=== PATIENT | male | born 1950 | race African-American/Black ===

== ENCOUNTER 2016-05-12 11:43 | Emergency (ER) | payer OTHER, MEDICARE ==
[2016-05-12] MEDS ORDERED: CEFAZOLIN 1 GM/D5W RTU 50 ML IV ONE (11:54)
[2016-05-12] MEDS ORDERED: DIPH/PERTUSS(ACELL)/TETANUS VAC/PF 0.5 ML SYR (>=10YO) IM ONE (11:54)
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
[2016-05-12 12:05] LABS: ABSOLUTE BASOPHILS # (AUTO) 0.1 10^3/uL (0.0-0.2); ABSOLUTE EOSINOPHILS # (AUTO) 0.1 10^3/uL (0.0-0.6); ABSOLUTE LYMPHOCYTES (AUTO) 2.1 10^3/uL (0.5-4.7); ABSOLUTE MONOCYTES (AUTO) 0.4 10^3/uL (0.1-1.4); ABSOLUTE NEUT (AUTO) 1.9 10^3/uL (1.7-8.2); BASOPHILS % (AUTO) 1.1 % (0-2); EOSINOPHILS % (AUTO) 2.5 % (0-6); HEMATOCRIT 40.8 % (37.9-51.0); HEMOGLOBIN 13.7 g/dL (13.5-17.0); HGB HCT DIFFERENCE 0.3; LYMPHOCYTES % (AUTO) 47.3 % (13-45); MEAN CORPUSCULAR HEMOGLOBIN 29.7 pg (27.0-33.4); MEAN CORPUSCULAR HGB CONC 33.6 g/dL (32.0-36.0); MEAN CORPUSCULAR VOLUME 89 fl (80-97); MONOCYTES % (AUTO) 8.1 % (3-13); RED CELL DISTRIBUTION WIDTH 13.5 % (11.5-14.0); WHITE BLOOD COUNT 4.6 10^3/uL (4.0-10.5)
[2016-05-12 12:12] LABS: ALANINE AMINOTRANSFERASE 33 U/L (21-72); ALBUMIN 3.7 g/dL (3.5-5.0); ALKALINE PHOSPHATASE 55 U/L (38-126); ASPARTATE AMINO TRANSFERASE 36 U/L (17-59); BILIRUBIN,TOTAL 0.5 mg/dL (0.2-1.3); BLOOD UREA NITROGEN 13 mg/dL (7-20); CARBON DIOXIDE 14 mmol/L (22-30); CHLORIDE 104 mmol/L (98-107); CREATININE RESULT 1.39 mg/dL (0.52-1.25); GLUCOSE 129 mg/dL (75-110); POTASSIUM 4.2 mmol/L (3.6-5.0); SODIUM 139.2 mmol/L (137-145); TOTAL PROTEIN 7.9 g/dL (6.3-8.2)
[2016-05-12 12:15] LABS: ANION GAP 21 (5-19)
[2016-05-12] MEDS ORDERED: TETANUS/DIPHTHERIA TOX-ADULT 0.5 ML SYR (>=7YO) IM ONE (12:20)
[2016-05-12 12:27] VITALS: BP 85/54
== END 2016-05-12 12:32 | disposition short-term general hospital (02) ==
LOC: ER 11:43
DX: S09.90XA Unspecified injury of head, initial encounter (principal); R41.82 Altered mental status, unspecified; V87.7XXA Person injured in collision between other specified motor vehicles (traffic), initial encounter
CPT/HCPCS: 99291; 90471; 96365; 36415; 85025; 80053; 70450; 71260; 72125; 74177; 90714; J0690

== ENCOUNTER → 2016-06-14 | Outpatient (CLI) | payer MEDICARE | LOC: OD 10:55 | PROVIDERS: ATTEND Family Medicine | DX: R56.9 Unspecified convulsions (principal); Z79.899 Other long term (current) drug therapy; Z12.5 Encounter for screening for malignant neoplasm of prostate | CPT/HCPCS: 36415; 80185; 83036; 84153 ==

== ENCOUNTER → 2016-09-15 | Outpatient (CLI) | payer MEDICARE | LOC: OD 08:18 | PROVIDERS: ATTEND Family Medicine | DX: N52.9 Male erectile dysfunction, unspecified (principal) | CPT/HCPCS: 36415; 84403 ==

== ENCOUNTER 2016-11-15 07:59 | Day surgery (SDC) | payer MEDICARE, OTHER ==
[~2016-11-15 07:59] MED LIST: KETOROLAC TROMETHAMINE 0.45% 4 DROP/0.4 ML DROPERETTE OS PRN; MIDAZOLAM 2 MG/2 ML INJ ONE
[2016-11-15] MEDS: CYCLOPENTOLATE 0.2%/PHENYLEPHRINE 1% OPH SOLN 2 ML OS PRN ×3 (08:40→09:00)
[2016-11-15] MEDS: TROPICAMIDE 1% OPH SOLN 3 ML OS PRN ×3 (08:40→09:00)
[2016-11-15] MEDS: BESIFLOXACIN HCL 0.6% OPH SUSP 5 ML BOTTLE OS PRN ×4 (08:41→10:15)
[2016-11-15] MEDS: LIDOCAINE 3.5% OPH GEL/PF 1 ML/TUBE OS PRN ×3 (08:41→09:56)
[2016-11-15] MEDS: BUPIVACAINE HCL 0.75% INJ/PF (7.5 MG/1 ML) 10 ML SDV OS PRN ×2 (09:55)
[2016-11-15] MEDS: LIDOCAINE 4% INJ/PF (40 MG/ML) 5 ML AMPUL OS PRN ×2 (09:55)
[2016-11-15] MEDS: LIDOCAINE 1% INJ-PF (10 MG/ML) 30 ML SDV ONE ×2 (10:01)
[2016-11-15] MEDS: CHONDR SU A NA/HYALUR INTRAOC KIT (SURGICARE) ONE ×2 (10:01)
[2016-11-15] MEDS: PHENYLEPHRINE/KETOROLAC 1%-0.3% 4 ML VIAL ONE ×2 (10:01)
--- NOTE | 2016-11-15 10:45 | [facility] OPERATIVE REPORT E ---
[facility] Operative Report NAME: ALIZE MONTES AGE: 66Y DATE OF SURGERY: 11/15/2016 ROOM: PREOPERATIVE DIAGNOSIS: Cataract, left eye. POSTOPERATIVE DIAGNOSIS: Cataract, left eye. PROCEDURE PERFORMED: Phacoemulsification with posterior chamber intraocular lens, left eye. SURGEON: Kamryn Hopkins MD ANESTHESIA: Topical with MAC plus intraocular lidocaine. PROCEDURE: The patient was brought to the operating room and placed on the operative table. Following tetracaine drops, topical anesthesia was administered. This consisted of instrument wipe pledgets soaked in a solution of 4% Xylocaine mixed with 0.75% Marcaine in a 1:2 ratio. A 2 x 1 cm pledget was placed in the superior fornix. A 1 x 1 cm pledget was placed in the inferior fornix. The eye was patched shut for 5 minutes. The patch was removed. The eye was sterilely prepped and draped in the usual manner. Lid speculum was placed in the eye. The pledgets were removed. 4-0 black silk sutures were placed around the superior and the inferior rectus muscles to be used as traction. A conjunctival peritomy was made at the 10 o'clock position. Hemostasis was obtained with bipolar cautery. A posterior limbal groove was created using a crescent knife and dissected anteriorly towards the cornea. A sharp point blade was used to create a paracentesis site at the 2 o'clock position. A 2.4 mm keratome was used to enter the anterior chamber through the groove. Viscoelastic was injected into the anterior chamber. An anterior capsulotomy was performed using Utrata forceps in a capsulorrhexis fashion. Hydrodissection and hydrodelineation were performed. Phacoemulsification was performed in [id number] technique. Total phaco time 1 minute 39 seconds. Following this, the I/A unit was used to remove residual cortex. Viscoelastic was injected into the capsular bag. Intraocular lens model SN60WF, 19.5 diopters, serial number [id number] was placed in the capsular bag. The I/A unit was used to remove residual viscoelastic. The wound was seen to be watertight under high and low pressure, and no sutures were placed. The intraocular lens was well centered. The pressure was adjusted in the eye to normal pressure. The 4-0 black silk sutures and lid speculum were removed. The eye was shielded after Besivance drops were placed. The patient tolerated the procedure well and was sent to the recovery room in good condition. DICTATING PHYSICIAN: KAMRYN HOPKINS M.D. [id number] PHY#: [id number] ID: [id number] JOB#: [id number] ACCT: [id number] cc:KAMRYN HOPKINS M.D. >
--- NOTE | 2016-11-15 10:47 | [facility] DISCHARGE SUMMARY E ---
[facility] Discharge Summary NAME: ALIZE MONTES AGE: 66Y ADMITTED: 11/15/2016 DISCHARGED: 11/15/2016 PREOPERATIVE DIAGNOSIS: Cataract, left eye. POSTOPERATIVE DIAGNOSIS: Cataract, left eye. HOSPITAL COURSE: The patient is a 66-year-old gentleman who underwent uneventful cataract extraction with intraocular lens implant, left eye, on 11/15/2016. He will be discharged to home. He was instructed to resume preoperative medications, take Tylenol as needed for discomfort, to keep his eye shielded, to use Besivance, Durezol, and Ilevro at 3 p.m. and 8 p.m., and to followup in my office in 1 day. DICTATING PHYSICIAN: BRANDY HOPKINS M.D. [id number] PHY#: [id number] ID: [id number] JOB#: [id number] ACCT: [id number] cc:BRANDY HOPKINS M.D. >
== END 2016-11-15 10:53 | disposition home or self-care (01) ==
LOC: SC 07:59
PROVIDERS: ATTEND Ophthalmology
PROC: 08RK3JZ Replacement of Left Lens with Synthetic Substitute, Percutaneous Approach (ICD-10-PCS; principal; 2016-11-15 09:00)
DX: H25.812 Combined forms of age-related cataract, left eye (principal); H57.03 Miosis; H04.123 Dry eye syndrome of bilateral lacrimal glands; Z96.1 Presence of intraocular lens; H52.4 Presbyopia; Z98.41 Cataract extraction status, right eye; I10 Essential (primary) hypertension; M19.90 Unspecified osteoarthritis, unspecified site; R32 Unspecified urinary incontinence; G40.909 Epilepsy, unspecified, not intractable, without status epilepticus; F17.210 Nicotine dependence, cigarettes, uncomplicated; Z79.1 Long term (current) use of non-steroidal anti-inflammatories (NSAID); Z79.899 Other long term (current) drug therapy
CPT/HCPCS: 66984; V2632; J2250; J3490 ×4; A9270 ×2; C9447; 142

== ENCOUNTER 2017-04-28 08:18 | Emergency (ER) | payer MEDICARE, OTHER ==
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
[2017-04-28] MEDS ORDERED: DEXAMETHASONE SOD PHOS INJ 10 MG/1 ML VIAL IM ONE (09:26)
[2017-04-28] MEDS ORDERED: FAMOTIDINE 20 MG TABLET PO ONE (09:26)
[2017-04-28] MEDS ORDERED: DIPHENHYDRAMINE HCL 50 MG/ML VIAL IM ONE (09:26)
[2017-04-28 10:07] VITALS: BP 128/63
== END 2017-04-28 10:07 | disposition home or self-care (01) ==
LOC: ER 08:18
DX: T78.40XA Allergy, unspecified, initial encounter (principal); X58.XXXA Exposure to other specified factors, initial encounter; E78.00 Pure hypercholesterolemia, unspecified; I10 Essential (primary) hypertension; F17.200 Nicotine dependence, unspecified, uncomplicated
CPT/HCPCS: 99283; 96372; A9270; J1200; J1100

== ENCOUNTER 2017-05-01 19:16 | Inpatient (IN) | payer MEDICARE, OTHER ==
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
[2017-05-01 20:01] LABS: ABSOLUTE LYMPHOCYTES (AUTO) 1.6 10^3/uL (0.5-4.7); ABSOLUTE MONOCYTES (AUTO) 0.5 10^3/uL (0.1-1.4); ABSOLUTE NEUT (AUTO) 2.3 10^3/uL (1.7-8.2); BASOPHILS % (AUTO) 0.4 % (0-2); EOSINOPHILS % (AUTO) 0.9 % (0-6); HEMATOCRIT 37.7 % (37.9-51.0); HEMOGLOBIN 12.9 g/dL (13.5-17.0); LYMPHOCYTES % (AUTO) 36.1 % (13-45); MEAN CORPUSCULAR HEMOGLOBIN 28.4 pg (27.0-33.4); MEAN CORPUSCULAR HGB CONC 34.2 g/dL (32.0-36.0); MEAN CORPUSCULAR VOLUME 83 fl (80-97); MONOCYTES % (AUTO) 11.4 % (3-13); PLATELET COUNT 106 10^3/uL (150-450); RED BLOOD COUNT 4.53 10^6/uL (4.35-5.55); RED CELL DISTRIBUTION WIDTH 13.9 % (11.5-14.0); SEGMENTED NEUTROPHILS % (AUTO) 51.2 % (42-78); TOTAL CELLS COUNTED % (AUTO) 100 %; WHITE BLOOD COUNT 4.5 10^3/uL (4.0-10.5)
--- NOTE | 2017-05-01 20:13 | RADIOLOGY REPORT (SQ) ---
EXAM DESCRIPTION: CHEST PA/LAT COMPLETED DATE/TIME: 05/01/2017 7:59 pm REASON FOR STUDY: cp COMPARISON: CT CHEST 05/12/2016, TWO-VIEW CHEST 12/06/2008 EXAM PARAMETERS: NUMBER OF VIEWS: two views TECHNIQUE: Digital Frontal and Lateral radiographic views of the chest acquired. RADIATION DOSE: NA LIMITATIONS: none FINDINGS: LUNGS AND PLEURA: No opacities, masses or pneumothorax. No pleural effusion. MEDIASTINUM AND HILAR STRUCTURES: No masses or contour abnormalities. HEART AND VASCULAR STRUCTURES: Heart normal size. No evidence for failure. BONES: Stable T8 less than 25% compression deformity HARDWARE: None in the chest. OTHER: No other significant finding. IMPRESSION: NO SIGNIFICANT RADIOGRAPHIC FINDING IN THE CHEST. TECHNICAL DOCUMENTATION: JOB ID: [id number] [employer]- All Rights Reserved
[2017-05-01 20:21] LABS: ALANINE AMINOTRANSFERASE 22 U/L (21-72); ALKALINE PHOSPHATASE 93 U/L (38-126); ANION GAP 9 (5-19); ASPARTATE AMINO TRANSFERASE 20 U/L (17-59); BILIRUBIN,DIRECT 0.4 mg/dL (0.0-0.4); BILIRUBIN,TOTAL 0.6 mg/dL (0.2-1.3); BLOOD UREA NITROGEN 13 mg/dL (7-20); CALCIUM 9.4 mg/dL (8.4-10.2); CARBON DIOXIDE 26 mmol/L (22-30); CHLORIDE 105 mmol/L (98-107); CREATINE KINASE 70 U/L (55-170); GLUCOSE 98 mg/dL (75-110); POTASSIUM 3.3 mmol/L (3.6-5.0); SODIUM 139.8 mmol/L (137-145); TOTAL PROTEIN 7.5 g/dL (6.3-8.2)
[2017-05-01 20:33] LABS: CREATINE KINASE MB 0.28 ng/mL (<4.55); TROPONIN I 0.013 ng/mL
--- NOTE | 2017-05-01 21:49 | RADIOLOGY REPORT (SQ) ---
EXAM DESCRIPTION: CTA CHEST COMPLETED DATE/TIME: 05/01/2017 9:30 pm REASON FOR STUDY: hx dvt, left lower cxhest pain with breathing COMPARISON: Two-view chest 05/01/2017 CT chest with IV contrast 05/12/2016 TECHNIQUE: CT scan of the chest performed using helical scanning technique with dynamic intravenous contrast injection. Images reviewed with lung, soft tissue and bone windows. Reconstructed coronal and sagittal MPR images reviewed. Additional 3 dimensional post-processing performed to develop Maximal Intensity Projection images (AR P). All images stored on PACS. All CT scanners at this facility use dose modulation, iterative reconstruction, and/or weight based d osing when appropriate to reduce radiation dose to as low as reasonably achievable (ALARA). [facility]: Dose Right [facility]: CareDose [facility]: Dose Right [facility]: Teradose 4D [facility]: [employer] CONTRAST TYPE AND DOSE: contrast/concentration: Isovue 370.00 mg/ml; Total Contrast Delivered: 75.0 ml; Total Saline Delivered: 67.7 ml Contrast bolus adequate for pulmonary arteries and aorta. RENAL FUNCTION: Creatinine 0.83 RADIATION DOSE: CT Rad equipment meets quality standard of care and radiation dose reduction techniq ues were employed. CTDIvol: 14.6 - 16.5 mGy. DLP: 591 mGy-cm. . LIMITATIONS: None. FINDINGS: LUNGS AND PLEURA: Minimal atelectasis in the dependent portion of the left lower lobe. No fluffy alveolar infiltrates worrisome for pulmonary edema or pneumonia. No pleural effusions or pneumothorax AORTA AND GREAT VESSELS: No aneurysm. Contrast bolus not optimized for the aorta. HEART: No pericardial effusion. No significant coronary artery calcifications. PULMONARY ARTERIES: Heavy burden of clot to these distal right main pulmonary artery, anterior segmen t right upper lobe, segmental right lower lobe and left lower lobe pulmonary arteries. HILAR AND MEDIASTINAL STRUCTURES: No identified masses or abnormal nodes. HARDWARE: None in the chest. UPPER ABDOMEN: No significant findings. Limited exam. THYROID AND OTHER SOFT TISSUES: No masses. No adenopathy. BONES: Chronic T8 25 to 50% compression deformity 3D MIPS: Confirm above findings. OTHER: No other significant finding. IMPRESSION: Bilateral lower lobe and anterior segment right upper lobe pulmonary emboli COMMENT: Pertinent findings on the imaging study reported as a CRITICAL RESULT to DR ALLEN at21:3 3 on 05/01/2017. Category of Critical Result: Bilateral pulmonary emboli Quality ID # [id number]: Final reports with documentation of one or more dose reduction techniques (e.g., Au tomated exposure control, adjustment of the mA and/or kV according to patient size, use of iterative reconstruction technique) TECHNICAL DOCUMENTATION: JOB ID: [id number] [employer]- All Rights Reserved
[2017-05-01] MEDS ORDERED: HEPARIN SOD (PORCINE) 1,000 UNIT/ML 10 ML VIAL IV ONE ×2 (21:55→22:35)
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
[2017-05-01 22:09] LABS: INTERNATIONAL RATION (INR) 0.98; PROTHROMBIN TIME 13.7 SEC (11.4-15.4)
[2017-05-01 22:10] LABS: PARTIAL THROMBOPLASTIN TIME 39.8 SEC (23.5-35.8)
[2017-05-01] MEDS ORDERED: HEPARIN SODIUM,PORCINE/D5W 25,000 UNIT/250 ML RTUINJ IV ONE (22:18)
[2017-05-01] MEDS: HEPARIN SODIUM,PORCINE/D5W 25,000 UNIT/250 ML RTUINJ IV PRN (22:20)
[2017-05-01] MEDS ORDERED: MAGNESIUM HYDROXIDE SUSP 30 ML UDCUP PO PRN (22:35)
[2017-05-01] MEDS ORDERED: PROMETHAZINE HCL INJ 25 MG/1 ML VIAL IV PRN (22:35)
[2017-05-01] MEDS ORDERED: ZOLPIDEM TARTRATE 5 MG TABLET PO PRN (22:35)
[2017-05-01] MEDS ORDERED: ACETAMINOPHEN 325 MG TABLET PO PRN (22:35)
[2017-05-01] MEDS ORDERED: MAG HYDROX/AL HYDROX/SIMETH SUSP 30 ML UDCUP PO PRN (22:35)
[2017-05-01] MEDS ORDERED: AMLODIPINE BESYLATE 10 MG TABLET PO ONE (23:00)
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
[2017-05-01] MEDS ORDERED: PHENYTOIN SODIUM EXTENDED 100 MG CAPSULE PO ONE (23:45)
[2017-05-02] MEDS: DEXTROSE 5%-NORMAL SALINE 1,000 ML IV PRN (00:41)
[2017-05-02] MEDS ORDERED: HEPARIN SOD (PORCINE) 1,000 UNIT/ML 10 ML VIAL IV PRN (00:55)
[2017-05-02 01:00] LABS: APPEARANCE,URINE CLEAR; BILIRUBIN,URINE NEGATIVE (NEGATIVE); COLOR,URINE YELLOW; GLUCOSE, URINE NEGATIVE (NEGATIVE); KETONES,URINE NEGATIVE (NEGATIVE); LEUKOCYTE ESTERASE,URINE NEGATIVE (NEGATIVE); NITRITE,URINE NEGATIVE (NEGATIVE); PROTEIN,URINE NEGATIVE (NEGATIVE)
[2017-05-02 04:56] LABS: ABSOLUTE EOSINOPHILS # (AUTO) 0.1 10^3/uL (0.0-0.6); ABSOLUTE LYMPHOCYTES (AUTO) 1.8 10^3/uL (0.5-4.7); ABSOLUTE MONOCYTES (AUTO) 0.7 10^3/uL (0.1-1.4); BASOPHILS % (AUTO) 0.7 % (0-2); EOSINOPHILS % (AUTO) 1.4 % (0-6); HEMATOCRIT 35.4 % (37.9-51.0); HEMOGLOBIN 12.2 g/dL (13.5-17.0); LYMPHOCYTES % (AUTO) 39.9 % (13-45); MEAN CORPUSCULAR HEMOGLOBIN 28.7 pg (27.0-33.4); MEAN CORPUSCULAR HGB CONC 34.4 g/dL (32.0-36.0); MEAN CORPUSCULAR VOLUME 83 fl (80-97); MONOCYTES % (AUTO) 14.3 % (3-13); PLATELET COUNT 101 10^3/uL (150-450); RED BLOOD COUNT 4.25 10^6/uL (4.35-5.55); RED CELL DISTRIBUTION WIDTH 13.6 % (11.5-14.0); SEGMENTED NEUTROPHILS % (AUTO) 43.7 % (42-78); TOTAL CELLS COUNTED % (AUTO) 100 %; WHITE BLOOD COUNT 4.6 10^3/uL (4.0-10.5)
[2017-05-02 06:30] LABS: INTERNATIONAL RATION (INR) 1.08; PROTHROMBIN TIME 14.8 SEC (11.4-15.4)
--- NOTE | 2017-05-02 07:49 | EKG REPORT ---
SEVERITY:- ABNORMAL ECG - SINUS RHYTHM FIRST DEGREE AV BLOCK PROBABLE LEFT VENTRICULAR HYPERTROPHY CONSIDER ANTERIOR INFARCT : Confirmed by: Car Norris MD 02-May-2017 07:48:28
[2017-05-02] MEDS ORDERED: (PENDING PHARMACY ID) (Lisinopril [Prinivil] 20 MG) PO SCH ×2 (10:00→12:00)
[2017-05-02] MEDS ORDERED: AMLODIPINE BESYLATE 10 MG TABLET PO SCH (10:00)
[2017-05-02] MEDS ORDERED: LISINOPRIL 10 MG TABLET ONE (11:34)
[2017-05-02] MEDS: DOCUSATE SODIUM 100 MG CAPSULE PO SCH (11:38)
[2017-05-02] MEDS: FAMOTIDINE 20 MG TABLET PO SCH ×2 (11:38→21:15)
[2017-05-02] MEDS: AMLODIPINE BESYLATE 10 MG TABLET PO SCH (11:39)
[2017-05-02] MEDS: TAMSULOSIN HCL 0.4 MG CAP.SR.24H PO SCH (11:41)
[2017-05-02] MEDS: ASPIRIN 81 MG TABLET, ENT COATED PO SCH (11:41)
[2017-05-02 11:42] LABS: ALANINE AMINOTRANSFERASE 28 U/L (21-72); ALBUMIN 3.4 g/dL (3.5-5.0); ALKALINE PHOSPHATASE 77 U/L (38-126); ANION GAP 7 (5-19); ASPARTATE AMINO TRANSFERASE 16 U/L (17-59); BILIRUBIN,DIRECT 0.3 mg/dL (0.0-0.4); BILIRUBIN,TOTAL 0.5 mg/dL (0.2-1.3); BLOOD UREA NITROGEN 12 mg/dL (7-20); CALCIUM 9.1 mg/dL (8.4-10.2); CARBON DIOXIDE 24 mmol/L (22-30); CHLORIDE 110 mmol/L (98-107); GLUCOSE 107 mg/dL (75-110); POTASSIUM 3.5 mmol/L (3.6-5.0); SODIUM 140.6 mmol/L (137-145); TOTAL PROTEIN 6.6 g/dL (6.3-8.2)
[2017-05-02] MEDS: PHENYTOIN SODIUM EXTENDED 100 MG CAPSULE PO SCH (11:42)
[2017-05-02] MEDS: LISINOPRIL 10 MG TABLET PO SCH (11:43)
--- NOTE | 2017-05-02 14:35 | RADIOLOGY REPORT (SQ) ---
EXAM DESCRIPTION: VENOUS BILATERAL LOWER COMPLETED DATE/TIME: 05/02/2017 2:04 pm REASON FOR STUDY: pulmonary emboli COMPARISON: None. TECHNIQUE: Dynamic and static chow scale and color images acquired of both lower extremity venous sy stems. Selected spectral images acquired with additional compression and augmentation maneuvers. Imag es stored on PACS. LIMITATIONS: None. FINDINGS: RIGHT LEG COMMON FEMORAL AND FEMORAL: Normal phasicity, compression and augmentation. No visualized echogenic m aterial on chow scale. No defects on color images. POPLITEAL: Occlusive acute appearing intraluminal thrombus is identified CALF VESSELS: Normal compression and augmentation. No visualized echogenic material on chow scale. No defects on color image. GSV AND SSV: Normal compression. No visualized echogenic material on chow scale. No defects on color images. ANY DEEP VENOUS INSUFFICIENCY: Not evaluated. ANY EVIDENCE OF POPLITEAL CYST: No. OTHER: No other significant finding. LEFT LEG COMMON FEMORAL AND FEMORAL: Normal phasicity, compression and augmentation. No visualized echogenic m aterial on chow scale. No defects on color images. POPLITEAL: Normal compression and augmentation. No visualized echogenic material on chow scale. No de fects on color images. CALF VESSELS: Normal compression and augmentation. No visualized echogenic material on chow scale. No defects on color images. GSV AND SSV: Normal compression. No visualized echogenic material on chow scale. No defects on color images. ANY DEEP VENOUS INSUFFICIENCY: Not evaluated. ANY EVIDENCE POPLITEAL CYST: No. OTHER: No other significant finding. IMPRESSION: Findings consistent with deep venous thrombosis involving the popliteal vein on the righ t. No other evidence for deep or superficial venous thrombosis in either lower extremity TECHNICAL DOCUMENTATION: JOB ID: [id number] [employer]- All Rights Reserved
--- NOTE | 2017-05-02 14:39 | PDOC PROGRESS REPORT ---
Subjective Progress Note for:: 05/02/17 Subjective:: Patient seen on rounds. He is presently resting comfortably in bed. He is not requiring any oxygen. He denies any chest pain or dyspnea at rest. He is not tachycardic or hypoxemic. He denies any nausea, vomiting or abdominal pain. He denies any fever or chills. He denies any significant arthralgias or myalgias. Remaining review of systems are all negative. His family is at the bedside. Reason For Visit: BILATERAL PE WITH HEAVY CLOT BURDEN Physical Exam Vital Signs: Temp Pulse Resp BP Pulse Ox 100.4 F 79 22 H 157/57 H 99 05/02/17 06:20 05/01/17 19:32 05/02/17 05:59 05/02/17 06:00 05/02/17 06:01 Intake & Output 05/01/17 05/02/17 05/03/17 06:59 06:59 06:59 Output Total 450 Balance -450 General appearance: PRESENT: no acute distress, well-developed, well-nourished Head exam: PRESENT: atraumatic, normocephalic Ear exam: PRESENT: normal external ear exam Mouth exam: PRESENT: moist, tongue midline Neck exam: ABSENT: carotid bruit, JVD, lymphadenopathy, thyromegaly Respiratory exam: PRESENT: clear to auscultation lio. ABSENT: rales, rhonchi, wheezes Cardiovascular exam: PRESENT: irregular rhythm, +S1, +S2 Pulses: PRESENT: normal dorsalis pedis pul Vascular exam: PRESENT: normal capillary refill GI/Abdominal exam: PRESENT: normal bowel sounds, soft. ABSENT: distended, guarding, mass, organolmegaly, rebound, tenderness Rectal exam: PRESENT: deferred Extremities exam: PRESENT: full ROM. ABSENT: calf tenderness, clubbing, pedal edema Neurological exam: PRESENT: alert, awake, oriented to person, oriented to place , oriented to time, oriented to situation, CN II-XII grossly intact. ABSENT: motor sensory deficit Psychiatric exam: PRESENT: appropriate affect, normal mood. ABSENT: homicidal ideation, suicidal ideation Skin exam: PRESENT: dry, intact, warm. ABSENT: cyanosis, rash Results Laboratory Results: 05/02/17 04:45 05/02/17 11:09 05/02/17 05/02/17 05/02/17 00:45 04:45 11:09 WBC 4.6 RBC 4.25 L Hgb 12.2 L Hct 35.4 L MCV 83 MCH 28.7 MCHC 34.4 RDW 13.6 Plt Count 101 L Seg Neutrophils % 43.7 Lymphocytes % 39.9 Monocytes % 14.3 H Eosinophils % 1.4 Basophils % 0.7 Absolute Neutrophils 2.0 Absolute Lymphocytes 1.8 Absolute Monocytes 0.7 Absolute Eosinophils 0.1 Absolute Basophils 0.0 Sodium 140.6 Potassium 3.5 L Chloride 110 H Carbon Dioxide 24 Anion Gap 7 BUN 12 Creatinine 0.84 Est GFR ( Amer) > 60 Est GFR (Non-Af Amer) > 60 Glucose 107 Calcium 9.1 Total Bilirubin 0.5 AST 16 L ALT 28 Alkaline Phosphatase 77 Total Protein 6.6 Albumin 3.4 L Urine Color YELLOW Urine Appearance CLEAR Urine pH 7.0 Ur Specific Orange 1.040 Urine Protein NEGATIVE Urine Glucose (UA) NEGATIVE Urine Ketones NEGATIVE Urine Blood NEGATIVE Urine Nitrite NEGATIVE Ur Leukocyte Esterase NEGATIVE Urine WBC (Auto) 1 Urine RBC (Auto) 1 Impressions: Chest X-Ray 05/01/17 19:35 IMPRESSION: NO SIGNIFICANT RADIOGRAPHIC FINDING IN THE CHEST. Chest/Abdomen CTA 05/01/17 20:41 IMPRESSION: Bilateral lower lobe and anterior segment right upper lobe pulmonary emboli Assessment & Plan - Diagnosis (1) Multiple pulmonary emboli Is this a current diagnosis for this admission?: Yes Plan: Patient is presently asymptomatic. He is not having any chest pain or shortness of breath. He is not requiring any oxygen. He has no lower extremity edema. He has had no recent travels or injuries. He has no prior history of DVT or PE in the past. He did have a fracture of his left leg approximately 9 months ago and was on DVT prophylaxis for some time at that time. He has been told he has an irregular heart rhythm at times. He has not been taking any anticoagulation. Will consult hematology for their input. Will continue IV heparin for the present time. A transthoracic echo and lower extremity ultrasounds are pending. (2) Chest pain Qualifiers: Chest pain type: pleurodynia Qualified Code(s): R07.81 - Pleurodynia Is this a current diagnosis for this admission?: Yes (3) BPH NOS w ur obs/LUTS Is this a current diagnosis for this admission?: Yes Plan: Continue Flomax (4) HTN (hypertension) Qualifiers: Hypertension type: essential hypertension Qualified Code(s): I10 - Essential (primary) hypertension Is this a current diagnosis for this admission?: Yes Plan: Continue home medications he is presently normotensive. (5) Seizure disorder Is this a current diagnosis for this admission?: Yes Plan: Continue home medications. He has not had a seizure in over a year. - Time Time Spent with patient: 25-34 minutes Total Critical Time (Minutes): 20 Anticipated discharge: Home Within: within 48 hours
[2017-05-02] MEDS ORDERED: INFLUENZA ADLT QUAD (36MOS+) 2017-18 VAC 0.5 ML SYR IM PRN (16:56)
--- NOTE | 2017-05-02 19:06 | XCELERA REPORT ---
[address] [address] Transthoracic Echocardiogram Report Name: ALIZE MONTES Age: 67 yrs Gender: Male : 1950 Patient Status: Inpatient Patient Location: [address] Study Date: 05/02/2017 09:01 AM Height: 71 in Weight: 194 lb BSA: 2.1 m2 Procedure: A complete two-dimensional transthoracic echocardiogram was performed (2D, M-mode, spectral and color flow Doppler). The study was technically adequate with some images being suboptimal in quality. Reason For Study: pe Ordering Physician: LICO YUN Performed By: Agnieszka Kelly Interpretation Summary The left ventricular ejection fraction is normal. Doppler measurements suggest pseudonormalized left ventricular relaxation, which is associated with grade II/IV or mild to moderate diastolic dysfunction There is mild concentric left ventricular hypertrophy. The left ventricle is grossly normal size. Wall motion cannot be accurately commented on, but no definite regional wall motion abnormalities noted. The right ventricle is grossly normal size. The right ventricular systolic function is normal. Borderline left atrial enlargement. The right atrium is normal in size There is no mitral valve stenosis. There is a mild amount of mitral regurgitation There is mild aortic stenosis There is a peak gradient of 20 mm of Hg. There is a moderate amount of aortic regurgitation There is a mild amount of tricuspid regurgitation There is mild to moderate pulmonary hypertension by echo Right ventricular systolic pressure is estimated to be elevated at 40- 50mmHg. There is no pericardial effusion. MMode/2D Measurements & Calculations RVDd: 3.2 cm LVIDd: 4.6 cm FS: 40.6 % Ao root diam: IVSd: 1.00 cm LVIDs: 2.7 cm EDV(Teich): 95.9 ml 3.2 cm LVPWd: 0.98 cm ESV(Teich): 27.4 ml Ao root area: EF(Teich): 71.4 % 7.8 cm2 LA dimension: 3.5 cm LVOT diam: LVLd ap4: 8.5 cm CO(MOD-sp4): 7.1 l/min 2.5 cm EDV(MOD-sp4): SV(MOD-sp4): 103.0 ml LA A2Cs: 25.7 cm2 LVOT area: 130.0 ml LVLs ap4: 6.0 cm 5.1 cm2 ESV(MOD-sp4): 27.0 ml EF(MOD-sp4): 79.2 % LA A4Cs: LA length: 5.8 cm LA Vol Index (BP): LA Volume: 78.8 ml 21.0 cm2 37.9 ml/m2 Time Measurements MM R-R int: 0.87 sec MM HR: 69.0 BPM Doppler Measurements & Calculations MV E max moreno: MV P1/2t max moreno: Ao V2 max: AI max moreno: 114.5 cm/sec 111.1 cm/sec 217.2 cm/sec 502.2 cm/sec MV A max moreno: MV P1/2t: 77.7 msec Ao max PG: AI max P.0 cm/sec MVA(P1/2t): 2.8 cm2 18.9 mmHg 100.9 mmHg MV E/A: 0.97 MV dec slope: NETO(V,D): 3.7 cm2 AI dec slope: 327.4 cm/sec2 418.7 cm/sec2 AI P1/2t: 449.3 msec LV V1 max PG: PA V2 max: PI end-d moreno: TR max moreno: 10.0 mmHg 67.6 cm/sec 108.6 cm/sec 325.8 cm/sec LV V1 max: PA max P.8 mmHg TR max P.5 cm/sec 42.5 mmHg LV dP/dt: 1818 mmHg/s Left Ventricle The left ventricle is grossly normal size. There is mild concentric left ventricular hypertrophy. The left ventricular ejection fraction is normal. Doppler measurements suggest pseudonormalized left ventricular relaxation, which is associated with grade II/IV or mild to moderate diastolic dysfunction. Wall motion cannot be accurately commented on, but no definite regional wall motion abnormalities noted. Right Ventricle The right ventricle is grossly normal size. There is normal right ventricular wall thickness. The right ventricular systolic function is normal. Atria The right atrium is normal in size. Borderline left atrial enlargement. Interarterial septum not well visualized and not well dopplered. Cannot comment on ASD/PFO presence. Mitral Valve There is mild mitral annular calcification. There is mild mitral leaflet calcification. There is no mitral valve stenosis. There is a mild amount of mitral regurgitation. Aortic Valve The aortic valve is mildly calcified. There is mild aortic stenosis. There is a peak gradient of 20 mm of Hg. There is a moderate amount of aortic regurgitation. Tricuspid Valve The tricuspid valve is not well visualized, but is grossly normal. There is no tricuspid stenosis. There is a mild amount of tricuspid regurgitation. There is mild to moderate pulmonary hypertension by echo. Right ventricular systolic pressure is estimated to be elevated at 40-50mmHg. Pulmonic Valve The pulmonic valve is not well visualized. Great Vessels The aortic root is not well visualized. The inferior vena cava appeared normal and decreased > 50% with respiration (RAP 5-10 mmHg). Effusions There is no pericardial effusion. : LICO YUN > Padmini Javier
[2017-05-02] MEDS: HEPARIN SODIUM,PORCINE/D5W 25,000 UNIT/250 ML RTUINJ IV PRN (21:14)
[2017-05-02] MEDS: ATORVASTATIN CALCIUM 10 MG TABLET PO SCH (21:15)
[2017-05-02] MEDS ORDERED: (PENDING PHARMACY ID) (Pravastatin Sodium [Pravachol] 40 MG) PO SCH (22:00)
[2017-05-02] MEDS ORDERED: PHENYTOIN SODIUM EXTENDED 100 MG CAPSULE PO SCH (22:00)
[2017-05-03] MEDS: DEXTROSE 5%-NORMAL SALINE 1,000 ML IV PRN (06:34)
[2017-05-03 06:36] LABS: HEMATOCRIT 34.9 % (37.9-51.0); HEMOGLOBIN 11.7 g/dL (13.5-17.0); MEAN CORPUSCULAR HEMOGLOBIN 28.3 pg (27.0-33.4); MEAN CORPUSCULAR HGB CONC 33.6 g/dL (32.0-36.0); MEAN CORPUSCULAR VOLUME 84 fl (80-97); PLATELET COUNT 102 10^3/uL (150-450); RED BLOOD COUNT 4.14 10^6/uL (4.35-5.55); RED CELL DISTRIBUTION WIDTH 13.6 % (11.5-14.0); WHITE BLOOD COUNT 3.4 10^3/uL (4.0-10.5)
[2017-05-03 06:37] LABS: INTERNATIONAL RATION (INR) 1.08; PROTHROMBIN TIME 14.8 SEC (11.4-15.4)
[2017-05-03 07:28] LABS: ALANINE AMINOTRANSFERASE 31 U/L (21-72); ALBUMIN 3.1 g/dL (3.5-5.0); ALKALINE PHOSPHATASE 73 U/L (38-126); ANION GAP 6 (5-19); ASPARTATE AMINO TRANSFERASE 15 U/L (17-59); BILIRUBIN,DIRECT 0.3 mg/dL (0.0-0.4); BILIRUBIN,TOTAL 0.4 mg/dL (0.2-1.3); BLOOD UREA NITROGEN 11 mg/dL (7-20); CALCIUM 8.9 mg/dL (8.4-10.2); CARBON DIOXIDE 25 mmol/L (22-30); CHLORIDE 112 mmol/L (98-107); GLUCOSE 101 mg/dL (75-110); POTASSIUM 3.5 mmol/L (3.6-5.0); SODIUM 143.1 mmol/L (137-145); TOTAL PROTEIN 6.2 g/dL (6.3-8.2)
[2017-05-03 07:54] LABS: APPEARANCE,URINE CLEAR; BILIRUBIN,URINE NEGATIVE (NEGATIVE); COLOR,URINE YELLOW; GLUCOSE, URINE NEGATIVE (NEGATIVE); KETONES,URINE NEGATIVE (NEGATIVE); LEUKOCYTE ESTERASE,URINE NEGATIVE (NEGATIVE); NITRITE,URINE NEGATIVE (NEGATIVE); PROTEIN,URINE NEGATIVE (NEGATIVE); URINE SPECIFIC GRAVITY 1.021
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
[2017-05-03] MEDS: DOCUSATE SODIUM 100 MG CAPSULE PO SCH (09:57)
[2017-05-03] MEDS: FAMOTIDINE 20 MG TABLET PO SCH ×2 (09:57→22:54)
[2017-05-03] MEDS: AMLODIPINE BESYLATE 10 MG TABLET PO SCH (11:14)
[2017-05-03] MEDS: LISINOPRIL 10 MG TABLET PO SCH (11:14)
[2017-05-03] MEDS: TAMSULOSIN HCL 0.4 MG CAP.SR.24H PO SCH (11:15)
[2017-05-03] MEDS: ASPIRIN 81 MG TABLET, ENT COATED PO SCH (11:15)
[2017-05-03] MEDS: PHENYTOIN SODIUM EXTENDED 100 MG CAPSULE PO SCH (11:15)
--- NOTE | 2017-05-03 18:05 | PDOC PROGRESS REPORT ---
Subjective Progress Note for:: 05/03/17 Subjective:: Patient seen on rounds. He is presently resting comfortably in bed. He is not requiring any oxygen. He denies any chest pain or dyspnea at rest. He is not tachycardic or hypoxemic. He was seen by Dr Forde in hematology this am He denies any nausea, vomiting or abdominal pain. He denies any fever or chills. He denies any significant arthralgias or myalgias. Remaining review of systems are all negative. His family is at the bedside. Reason For Visit: BILATERAL PE WITH HEAVY CLOT BURDEN Physical Exam Vital Signs: Temp Pulse Resp BP Pulse Ox 99.0 F 61 18 152/60 H 100 05/03/17 16:33 05/03/17 16:33 05/03/17 16:33 05/03/17 16:33 05/03/17 16:33 Intake & Output 05/02/17 05/03/17 05/04/17 06:59 06:59 06:59 Intake Total 1372 354 Output Total 1250 Balance 122 354 Weight 79.3 kg General appearance: PRESENT: no acute distress, well-developed, well-nourished Head exam: PRESENT: atraumatic, normocephalic Eye exam: PRESENT: conjunctiva pink, EOMI, PERRLA. ABSENT: scleral icterus Ear exam: PRESENT: normal external ear exam Mouth exam: PRESENT: moist, tongue midline Neck exam: ABSENT: carotid bruit, JVD, lymphadenopathy, thyromegaly Respiratory exam: PRESENT: clear to auscultation lio. ABSENT: rales, rhonchi, wheezes Cardiovascular exam: PRESENT: RRR. ABSENT: diastolic murmur, rubs, systolic murmur Pulses: PRESENT: normal dorsalis pedis pul Vascular exam: PRESENT: normal capillary refill GI/Abdominal exam: PRESENT: normal bowel sounds, soft. ABSENT: distended, guarding, mass, organolmegaly, rebound, tenderness Rectal exam: PRESENT: deferred Extremities exam: PRESENT: full ROM. ABSENT: calf tenderness, clubbing, pedal edema Neurological exam: PRESENT: alert, awake, oriented to person, oriented to place , oriented to time, oriented to situation, CN II-XII grossly intact. ABSENT: motor sensory deficit Psychiatric exam: PRESENT: appropriate affect, normal mood. ABSENT: homicidal ideation, suicidal ideation Skin exam: PRESENT: dry, intact, warm. ABSENT: cyanosis, rash Results Laboratory Results: 05/03/17 06:01 05/03/17 06:01 05/03/17 05/03/17 05/03/17 06:01 06:01 06:30 WBC 3.4 L RBC 4.14 L Hgb 11.7 L Hct 34.9 L MCV 84 MCH 28.3 MCHC 33.6 RDW 13.6 Plt Count 102 L Sodium 143.1 Potassium 3.5 L Chloride 112 H Carbon Dioxide 25 Anion Gap 6 BUN 11 Creatinine 0.83 Est GFR ( Amer) > 60 Est GFR (Non-Af Amer) > 60 Glucose 101 Calcium 8.9 Total Bilirubin 0.4 AST 15 L ALT 31 Alkaline Phosphatase 73 Total Protein 6.2 L Albumin 3.1 L Urine Color YELLOW Urine Appearance CLEAR Urine pH 6.0 Ur Specific [place] 1.021 Urine Protein NEGATIVE Urine Glucose (UA) NEGATIVE Urine Ketones NEGATIVE Urine Blood NEGATIVE Urine Nitrite NEGATIVE Ur Leukocyte Esterase NEGATIVE Urine WBC (Auto) 1 Urine RBC (Auto) 5 Stool Occult Blood 05/03/17 12:25 WBC RBC Hgb Hct MCV MCH MCHC RDW Plt Count Sodium Potassium Chloride Carbon Dioxide Anion Gap BUN Creatinine Est GFR ( Amer) Est GFR (Non-Af Amer) Glucose Calcium Total Bilirubin AST ALT Alkaline Phosphatase Total Protein Albumin Urine Color Urine Appearance Urine pH Ur Specific [place] Urine Protein Urine Glucose (UA) Urine Ketones Urine Blood Urine Nitrite Ur Leukocyte Esterase Urine WBC (Auto) Urine RBC (Auto) Stool Occult Blood NEGATIVE Impressions: Chest X-Ray 05/01/17 19:35 IMPRESSION: NO SIGNIFICANT RADIOGRAPHIC FINDING IN THE CHEST. Chest/Abdomen CTA 05/01/17 20:41 IMPRESSION: Bilateral lower lobe and anterior segment right upper lobe pulmonary emboli Venous Doppler Study 05/02/17 00:00 IMPRESSION: Findings consistent with deep venous thrombosis involving the popliteal vein on the right. No other evidence for deep or superficial venous thrombosis in either lower extremity Assessment & Plan - Diagnosis (1) Multiple pulmonary emboli Is this a current diagnosis for this admission?: Yes Plan: Patient is presently asymptomatic. He is not having any chest pain or shortness of breath. He was found to have right leg polpiteal DVT as well. He has history of PE several years ago. He is on Dilantin which interacts with Eliquis, Xarelto etc. Will start on Coumadin today and bridge with Heparin (2) BPH NOS w ur obs/LUTS Is this a current diagnosis for this admission?: Yes Plan: Continue Flomax (3) HTN (hypertension) Qualifiers: Hypertension type: essential hypertension Qualified Code(s): I10 - Essential (primary) hypertension Is this a current diagnosis for this admission?: Yes Plan: Continue home medications he is presently normotensive. (4) Seizure disorder Is this a current diagnosis for this admission?: Yes Plan: Continue home medications. He has not had a seizure in over a year. (5) Chest pain Qualifiers: Chest pain type: pleurodynia Qualified Code(s): R07.81 - Pleurodynia Is this a current diagnosis for this admission?: Yes Plan: Resolved secondary to PE - Time Time Spent with patient: 25-34 minutes Smoking Cessation Education: 3 to 10 minutes Medications reviewed and adjusted accordingly: Yes Anticipated discharge: Home with Homehealth
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
[2017-05-03] MEDS: WARFARIN SODIUM 3 MG TABLET PO SCH (22:54)
[2017-05-03] MEDS: ATORVASTATIN CALCIUM 10 MG TABLET PO SCH (22:54)
[2017-05-04] MEDS: HEPARIN SODIUM,PORCINE/D5W 25,000 UNIT/250 ML RTUINJ IV PRN (01:12)
[2017-05-04 06:16] LABS: ABSOLUTE EOSINOPHILS # (AUTO) 0.1 10^3/uL (0.0-0.6); ABSOLUTE LYMPHOCYTES (AUTO) 1.6 10^3/uL (0.5-4.7); ABSOLUTE MONOCYTES (AUTO) 0.3 10^3/uL (0.1-1.4); ABSOLUTE NEUT (AUTO) 0.6 10^3/uL (1.7-8.2); BASOPHILS % (AUTO) 0.7 % (0-2); EOSINOPHILS % (AUTO) 4.2 % (0-6); HEMATOCRIT 35.6 % (37.9-51.0); HEMOGLOBIN 12.2 g/dL (13.5-17.0); LYMPHOCYTES % (AUTO) 59.9 % (13-45); MEAN CORPUSCULAR HEMOGLOBIN 28.7 pg (27.0-33.4); MEAN CORPUSCULAR HGB CONC 34.3 g/dL (32.0-36.0); MEAN CORPUSCULAR VOLUME 84 fl (80-97); MONOCYTES % (AUTO) 11.4 % (3-13); PLATELET COUNT 113 10^3/uL (150-450); RED BLOOD COUNT 4.25 10^6/uL (4.35-5.55); RED CELL DISTRIBUTION WIDTH 13.8 % (11.5-14.0); SEGMENTED NEUTROPHILS % (AUTO) 23.8 % (42-78); TOTAL CELLS COUNTED % (AUTO) 100 %; WHITE BLOOD COUNT 2.7 10^3/uL (4.0-10.5)
[2017-05-04 06:19] LABS: INTERNATIONAL RATION (INR) 1.01
[2017-05-04 06:21] LABS: PARTIAL THROMBOPLASTIN TIME 91.3 SEC (23.5-35.8)
[2017-05-04 06:35] LABS: ALANINE AMINOTRANSFERASE 23 U/L (21-72); ALBUMIN 3.4 g/dL (3.5-5.0); ALKALINE PHOSPHATASE 81 U/L (38-126); ANION GAP 7 (5-19); ASPARTATE AMINO TRANSFERASE 18 U/L (17-59); BILIRUBIN,DIRECT 0.3 mg/dL (0.0-0.4); BILIRUBIN,TOTAL 0.3 mg/dL (0.2-1.3); BLOOD UREA NITROGEN 10 mg/dL (7-20); CALCIUM 9.3 mg/dL (8.4-10.2); CARBON DIOXIDE 24 mmol/L (22-30); CHLORIDE 110 mmol/L (98-107); GLUCOSE 92 mg/dL (75-110); POTASSIUM 3.5 mmol/L (3.6-5.0); TOTAL PROTEIN 6.6 g/dL (6.3-8.2)
--- NOTE | 2017-05-04 07:48 | PDOC PROGRESS REPORT ---
Subjective Progress Note for:: 05/04/17 Subjective:: Patient without complaints today. His chest pain is now gone. He asks for a flu shot while he is here. Reason For Visit: BILATERAL PE WITH HEAVY CLOT BURDEN Physical Exam Vital Signs: Temp Pulse Resp BP Pulse Ox 98.9 F 56 L 18 137/64 H 100 05/04/17 03:59 05/04/17 03:59 05/04/17 03:59 05/04/17 03:59 05/04/17 03:59 Intake & Output 05/03/17 05/04/17 05/05/17 06:59 06:59 06:59 Intake Total 1372 1274 Output Total 1250 500 Balance 122 774 Weight 79.3 kg 75.7 kg General appearance: PRESENT: no acute distress Respiratory exam: PRESENT: unlabored Neurological exam: PRESENT: alert, awake Psychiatric exam: PRESENT: appropriate affect Results Laboratory Results: 05/04/17 05:22 05/04/17 05:22 05/03/17 05/03/17 05/04/17 06:30 12:25 05:22 WBC 2.7 L RBC 4.25 L Hgb 12.2 L Hct 35.6 L MCV 84 MCH 28.7 MCHC 34.3 RDW 13.8 Plt Count 113 L Seg Neutrophils % 23.8 L Lymphocytes % 59.9 H Monocytes % 11.4 Eosinophils % 4.2 Basophils % 0.7 Absolute Neutrophils 0.6 L Absolute Lymphocytes 1.6 Absolute Monocytes 0.3 Absolute Eosinophils 0.1 Absolute Basophils 0.0 Sodium Potassium Chloride Carbon Dioxide Anion Gap BUN Creatinine Est GFR ( Amer) Est GFR (Non-Af Amer) Glucose Calcium Total Bilirubin AST ALT Alkaline Phosphatase Total Protein Albumin Urine Color YELLOW Urine Appearance CLEAR Urine pH 6.0 Ur Specific Arnold 1.021 Urine Protein NEGATIVE Urine Glucose (UA) NEGATIVE Urine Ketones NEGATIVE Urine Blood NEGATIVE Urine Nitrite NEGATIVE Ur Leukocyte Esterase NEGATIVE Urine WBC (Auto) 1 Urine RBC (Auto) 5 Stool Occult Blood NEGATIVE 05/04/17 05:22 WBC RBC Hgb Hct MCV MCH MCHC RDW Plt Count Seg Neutrophils % Lymphocytes % Monocytes % Eosinophils % Basophils % Absolute Neutrophils Absolute Lymphocytes Absolute Monocytes Absolute Eosinophils Absolute Basophils Sodium 141.0 Potassium 3.5 L Chloride 110 H Carbon Dioxide 24 Anion Gap 7 BUN 10 Creatinine 0.78 Est GFR ( Amer) > 60 Est GFR (Non-Af Amer) > 60 Glucose 92 Calcium 9.3 Total Bilirubin 0.3 AST 18 ALT 23 Alkaline Phosphatase 81 Total Protein 6.6 Albumin 3.4 L Urine Color Urine Appearance Urine pH Ur Specific Arnold Urine Protein Urine Glucose (UA) Urine Ketones Urine Blood Urine Nitrite Ur Leukocyte Esterase Urine WBC (Auto) Urine RBC (Auto) Stool Occult Blood Impressions: Chest X-Ray 05/01/17 19:35 IMPRESSION: NO SIGNIFICANT RADIOGRAPHIC FINDING IN THE CHEST. Chest/Abdomen CTA 05/01/17 20:41 IMPRESSION: Bilateral lower lobe and anterior segment right upper lobe pulmonary emboli Venous Doppler Study 05/02/17 00:00 IMPRESSION: Findings consistent with deep venous thrombosis involving the popliteal vein on the right. No other evidence for deep or superficial venous thrombosis in either lower extremity Assessment & Plan - Diagnosis (1) Multiple pulmonary emboli Is this a current diagnosis for this admission?: Yes Plan: I again explained plan to patient. He states he should be able to have PT/INR drawn in my office as needed to monitor the coumadin. This was started last night. He continues IV heparin until INR is 2-3. Please make sure patient has coumadin teaching and has appointment to follow-up with me as outpatient for labs and further Rx refills. Call if needed. OK with me to discharge once INR 2-3 with outpatient INR 3 days after discharge. OK for Flu shot prior to discharge.
[2017-05-04] MEDS: FAMOTIDINE 20 MG TABLET PO SCH ×2 (10:37→21:27)
[2017-05-04] MEDS: DOCUSATE SODIUM 100 MG CAPSULE PO SCH (10:37)
[2017-05-04] MEDS: LISINOPRIL 10 MG TABLET PO SCH (12:44)
[2017-05-04] MEDS: ASPIRIN 81 MG TABLET, ENT COATED PO SCH (12:44)
[2017-05-04] MEDS: PHENYTOIN SODIUM EXTENDED 100 MG CAPSULE PO SCH (12:45)
[2017-05-04] MEDS: AMLODIPINE BESYLATE 10 MG TABLET PO SCH (12:45)
[2017-05-04] MEDS: TAMSULOSIN HCL 0.4 MG CAP.SR.24H PO SCH (12:45)
--- NOTE | 2017-05-04 16:16 | PDOC PROGRESS REPORT ---
Subjective Progress Note for:: 05/04/17 Subjective:: Patient was admitted with multiple pulmonary emboli. He had been on heparin with the plan is to switch him to Lovenox bridge as well as Coumadin. He denies any complaints. There is no hemoptysis chest pain or dizziness. Reason For Visit: BILATERAL PE WITH HEAVY CLOT BURDEN Physical Exam Vital Signs: Temp Pulse Resp BP Pulse Ox 99.0 F 51 L 16 155/61 H 99 05/04/17 12:33 05/04/17 12:33 05/04/17 12:33 05/04/17 12:33 05/04/17 12:33 Intake & Output 05/03/17 05/04/17 05/05/17 06:59 06:59 06:59 Intake Total 1372 1274 318 Output Total 1250 500 Balance 122 774 318 Weight 79.3 kg 75.7 kg General appearance: PRESENT: no acute distress, well-developed Head exam: PRESENT: atraumatic, normocephalic Eye exam: PRESENT: conjunctiva pink, EOMI, PERRLA. ABSENT: scleral icterus Ear exam: PRESENT: normal external ear exam Mouth exam: PRESENT: moist, tongue midline Neck exam: ABSENT: carotid bruit, JVD, lymphadenopathy, thyromegaly Respiratory exam: PRESENT: clear to auscultation lio. ABSENT: rales, rhonchi, wheezes Cardiovascular exam: PRESENT: RRR. ABSENT: diastolic murmur, rubs, systolic murmur Pulses: PRESENT: normal dorsalis pedis pul Vascular exam: PRESENT: normal capillary refill GI/Abdominal exam: PRESENT: normal bowel sounds, soft. ABSENT: distended, guarding, mass, organolmegaly, rebound, tenderness Rectal exam: PRESENT: deferred Extremities exam: PRESENT: full ROM. ABSENT: calf tenderness, clubbing, pedal edema Neurological exam: PRESENT: alert, awake, oriented to person, oriented to place , oriented to time, oriented to situation, CN II-XII grossly intact. ABSENT: motor sensory deficit Psychiatric exam: PRESENT: appropriate affect, normal mood. ABSENT: homicidal ideation, suicidal ideation Skin exam: PRESENT: dry, intact, warm. ABSENT: cyanosis, rash Results Laboratory Results: 05/04/17 05:22 05/04/17 05:22 05/04/17 05/04/17 05:22 05:22 WBC 2.7 L RBC 4.25 L Hgb 12.2 L Hct 35.6 L MCV 84 MCH 28.7 MCHC 34.3 RDW 13.8 Plt Count 113 L Seg Neutrophils % 23.8 L Lymphocytes % 59.9 H Monocytes % 11.4 Eosinophils % 4.2 Basophils % 0.7 Absolute Neutrophils 0.6 L Absolute Lymphocytes 1.6 Absolute Monocytes 0.3 Absolute Eosinophils 0.1 Absolute Basophils 0.0 Sodium 141.0 Potassium 3.5 L Chloride 110 H Carbon Dioxide 24 Anion Gap 7 BUN 10 Creatinine 0.78 Est GFR ( Amer) > 60 Est GFR (Non-Af Amer) > 60 Glucose 92 Calcium 9.3 Total Bilirubin 0.3 AST 18 ALT 23 Alkaline Phosphatase 81 Total Protein 6.6 Albumin 3.4 L Impressions: Chest X-Ray 05/01/17 19:35 IMPRESSION: NO SIGNIFICANT RADIOGRAPHIC FINDING IN THE CHEST. Chest/Abdomen CTA 05/01/17 20:41 IMPRESSION: Bilateral lower lobe and anterior segment right upper lobe pulmonary emboli Venous Doppler Study 05/02/17 00:00 IMPRESSION: Findings consistent with deep venous thrombosis involving the popliteal vein on the right. No other evidence for deep or superficial venous thrombosis in either lower extremity Assessment & Plan - Diagnosis (1) HTN (hypertension) Qualifiers: Hypertension type: essential hypertension Qualified Code(s): I10 - Essential (primary) hypertension Is this a current diagnosis for this admission?: Yes (2) Multiple pulmonary emboli Is this a current diagnosis for this admission?: Yes (3) Seizure disorder Is this a current diagnosis for this admission?: Yes - Time Time Spent with patient: 15-24 minutes - Inpatient Certification Medical Necessity: Other - Adjustment of anticoagulation prior to discharge - Plan Summary Plan Summary: P Assessment and plan This is a current diagnosis for this admission 1. Multiple pulmonary emboli currently on heparin although this is to be discontinued and switched to Lovenox bridge as well as Coumadin. Plan is to likely discharge in a.m. 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 2. Hypertension, benign essential. This is stable 3. Seizure disorder currently on Dilantin 4. Benign prostatic hypertrophy chronic 5. Atypical chest pain likely secondary to multiple PEs. This has resolved
[2017-05-04] MEDS: ENOXAPARIN SODIUM INJ 80 MG/0.8 ML DISP.SYRIN SUBCUT SCH (19:22)
[2017-05-04] MEDS: WARFARIN SODIUM 3 MG TABLET PO SCH (21:27)
[2017-05-04] MEDS: ATORVASTATIN CALCIUM 10 MG TABLET PO SCH (21:27)
[2017-05-05] MEDS: ENOXAPARIN SODIUM INJ 80 MG/0.8 ML DISP.SYRIN SUBCUT SCH (05:53)
[2017-05-05 06:05] LABS: HEMATOCRIT 35.7 % (37.9-51.0); HEMOGLOBIN 12.2 g/dL (13.5-17.0); MEAN CORPUSCULAR HEMOGLOBIN 28.4 pg (27.0-33.4); MEAN CORPUSCULAR HGB CONC 34.2 g/dL (32.0-36.0); MEAN CORPUSCULAR VOLUME 83 fl (80-97); PLATELET COUNT 119 10^3/uL (150-450); RED CELL DISTRIBUTION WIDTH 13.3 % (11.5-14.0); WHITE BLOOD COUNT 2.6 10^3/uL (4.0-10.5)
[2017-05-05] MEDS: DOCUSATE SODIUM 100 MG CAPSULE PO SCH (10:47)
[2017-05-05] MEDS: FAMOTIDINE 20 MG TABLET PO SCH (10:47)
[2017-05-05 11:40] VITALS: BP 156/67
[2017-05-05] MEDS: ASPIRIN 81 MG TABLET, ENT COATED PO SCH (11:44)
[2017-05-05] MEDS: LISINOPRIL 10 MG TABLET PO SCH (11:44)
[2017-05-05] MEDS: TAMSULOSIN HCL 0.4 MG CAP.SR.24H PO SCH (11:45)
[2017-05-05] MEDS: AMLODIPINE BESYLATE 10 MG TABLET PO SCH (11:45)
[2017-05-05] MEDS: PHENYTOIN SODIUM EXTENDED 100 MG CAPSULE PO SCH (11:45)
--- NOTE | 2017-05-05 13:20 | PDOC PROGRESS REPORT ---
Subjective Progress Note for:: 05/04/17 Subjective:: Patient seems to be doing better with gradual improvement. Pt is denying any chest arm or neck discomfort. Patient denying any PND, orthopnea. Patient denied any sustained palpitations, dizziness, syncope, near syncope. Patient denying any fever chills. Patient denying any other significant discomfort. Patient is maintaining sinus rhythm. Review of systems: Rest review of systems negative. Medications: Medications have been reviewed. Reason For Visit: BILATERAL PE WITH HEAVY CLOT BURDEN Physical Exam Vital Signs: Temp Pulse Resp BP Pulse Ox 98.9 F 61 18 150/62 H 100 05/04/17 20:06 05/04/17 20:06 05/04/17 20:06 05/04/17 20:06 05/04/17 20:06 Intake & Output 05/03/17 05/04/17 05/05/17 06:59 06:59 06:59 Intake Total 1372 1274 917 Output Total 1250 500 Balance 122 774 917 Weight 79.3 kg 75.7 kg Exam: GENERAL: well-nourished and in no acute distress. Alert and oriented x3 HEAD: Atraumatic, normocephalic. EYES: Pupils equal round and reactive to light, extraocular movements intact, sclera anicteric, conjunctiva are normal. ENT: TMs normal, nares patent, oropharynx clear without exudates. Moist mucous membranes. No oral ulcerations or bleeding gums noted NECK: supple without lymphadenopathy. Trachea is central. No cervical or axillary lymphadenopathy noted. Carotids are 2+, JVD WNL LUNGS: Respiration seems nonlabored, no significant accessory muscle action noted. Breath sounds clear to auscultation bilaterally and equal noted. No wheezes rales or rhonchi noted. No significant dullness noted on percussion. CHEST: Palpation of the chest wall shows no significant chest wall tenderness. No other significant abnormalities noted. HEART: [place], No PSH, 2/6 WILLIAM aortic area, 2/6 early diastolic murmur noted LSB, 1/6 biggs systolic murmur mitral area, no rubs, no gallops. ABDOMEN: Soft, no significant tenderness appreciated, normoactive bowel sounds. No guarding, no rebound. No rigidity noted . No masses appreciated. EXTREMITIES: Pedal pulses are 1-2+, no calf tenderness noted. No clubbing or cyanosis.trace pedal edema noted NEUROLOGICAL: Focused neurological exam showed no significant neurologic deficit. Normal speech, no focal weakness appreciated. PSYCH: Normal mood, normal affect. Judgment and insight within normal limits. SKIN: No significant ecchymosis, rash, ulcerations or signs of pruritus noted. MUSCULOSKELETAL EXAM: No significant joint swelling noted. Results Laboratory Results: 05/04/17 05:22 05/04/17 05:22 05/04/17 05/04/17 05:22 05:22 WBC 2.7 L RBC 4.25 L Hgb 12.2 L Hct 35.6 L MCV 84 MCH 28.7 MCHC 34.3 RDW 13.8 Plt Count 113 L Seg Neutrophils % 23.8 L Lymphocytes % 59.9 H Monocytes % 11.4 Eosinophils % 4.2 Basophils % 0.7 Absolute Neutrophils 0.6 L Absolute Lymphocytes 1.6 Absolute Monocytes 0.3 Absolute Eosinophils 0.1 Absolute Basophils 0.0 Sodium 141.0 Potassium 3.5 L Chloride 110 H Carbon Dioxide 24 Anion Gap 7 BUN 10 Creatinine 0.78 Est GFR ( Amer) > 60 Est GFR (Non-Af Amer) > 60 Glucose 92 Calcium 9.3 Total Bilirubin 0.3 AST 18 ALT 23 Alkaline Phosphatase 81 Total Protein 6.6 Albumin 3.4 L EKG Comments: Shows sinus rhythm with occasional APCs and VPCs. No sustained tacky or bradycardia arrhythmias noted. Impressions: Chest X-Ray 05/01/17 19:35 IMPRESSION: NO SIGNIFICANT RADIOGRAPHIC FINDING IN THE CHEST. Chest/Abdomen CTA 05/01/17 20:41 IMPRESSION: Bilateral lower lobe and anterior segment right upper lobe pulmonary emboli Venous Doppler Study 05/02/17 00:00 IMPRESSION: Findings consistent with deep venous thrombosis involving the popliteal vein on the right. No other evidence for deep or superficial venous thrombosis in either lower extremity Assessment & Plan - Diagnosis (1) Chest pain Qualifiers: Chest pain type: chest pain on breathing Qualified Code(s): R07.1 - Chest pain on breathing; R07.81 - Pleurodynia Is this a current diagnosis for this admission?: Yes (2) HTN (hypertension) Qualifiers: Hypertension type: essential hypertension Qualified Code(s): I10 - Essential (primary) hypertension Is this a current diagnosis for this admission?: Yes (3) Multiple pulmonary emboli Is this a current diagnosis for this admission?: Yes (4) Valvular heart disease Is this a current diagnosis for this admission?: Yes - Notes Notes: Chest pain: [place] to be related to pulmonary embolism rather than acute coronary syndrome. Patient informed that he would benefit from stress test and will be happy to follow him in the office to schedule that. Hypertension: Currently reasonably well controlled. Continue current regimen. Multiple pulmonary emboli: Continue with chronic anticoagulation. Agree with oncologist consultation. Valvular heart disease: Currently stable without any evidence of CHF. Discussed that periodic follow-up will be needed. No need for SBE prophylaxis at this point. - Time Time with patient: 15-25 minutes - CODE STATUS was discussed, patient remains full code. Surrogate decision-maker unchanged. Multiple medical problems were addressed. More than 50% of the time spent coordinating care, discussing management plans with involved caregivers. Management plans discussed with involved personnels. Medical decision making was of moderate to high complexity , patient's has multiple comorbidities. Medications reviewed and adjusted accordingly: Yes
--- NOTE | 2017-05-05 13:23 | PDOC PROGRESS REPORT ---
Subjective Progress Note for:: 05/05/17 Subjective:: Patient seems to be doing better. He is expecting discharge. Pt is denying any chest arm or neck discomfort. Patient denying any PND, orthopnea. Patient denied any sustained palpitations, dizziness, syncope, near syncope. Patient denying any fever chills. Patient denying any other significant discomfort. Patient is maintaining sinus rhythm. Occasional APCs and VPCs noted Review of systems: Rest review of systems negative. Medications: Medications have been reviewed. Reason For Visit: BILATERAL PE WITH HEAVY CLOT BURDEN Physical Exam Vital Signs: Temp Pulse Resp BP Pulse Ox 97.9 F 55 L 16 156/67 H 100 05/05/17 11:34 05/05/17 11:34 05/05/17 11:34 05/05/17 11:34 05/05/17 11:34 Intake & Output 05/04/17 05/05/17 05/06/17 06:59 06:59 06:59 Intake Total 1274 927 Output Total 500 Balance 774 927 Weight 75.7 kg 75.5 kg Exam: GENERAL: well-nourished and in no acute distress. Alert and oriented x3 HEAD: Atraumatic, normocephalic. EYES: Pupils equal round and reactive to light, extraocular movements intact, sclera anicteric, conjunctiva are normal. ENT: TMs normal, nares patent, oropharynx clear without exudates. Moist mucous membranes. No oral ulcerations or bleeding gums noted NECK: supple without lymphadenopathy. Trachea is central. No cervical or axillary lymphadenopathy noted. Carotids are 2+, JVD WNL LUNGS: Respiration seems nonlabored, no significant accessory muscle action noted. Breath sounds clear to auscultation bilaterally and equal noted. No wheezes rales or rhonchi noted. No significant dullness noted on percussion. CHEST: Palpation of the chest wall shows no significant chest wall tenderness. No other significant abnormalities noted. HEART: [place] [employer], No PSH, 2/6 ejection systolic murmur noted in the aortic area, 2 /6 early diastolic murmur noted at LSB, 1/6 biggs systolic murmur mitral area, no rubs, no gallops. ABDOMEN: Soft, no significant tenderness appreciated, normoactive bowel sounds. No guarding, no rebound. No rigidity noted . No masses appreciated. EXTREMITIES: Pedal pulses are 1-2+, no calf tenderness noted. No clubbing or cyanosis. Negative pedal edema noted NEUROLOGICAL: Focused neurological exam showed no significant neurologic deficit. Normal speech, no focal weakness appreciated. PSYCH: Normal mood, normal affect. Judgment and insight within normal limits. SKIN: No significant ecchymosis, rash, ulcerations or signs of pruritus noted. MUSCULOSKELETAL EXAM: No significant joint swelling noted. Results Laboratory Results: 05/05/17 05:38 05/04/17 05:22 05/05/17 05:38 WBC 2.6 L RBC 4.30 L Hgb 12.2 L Hct 35.7 L MCV 83 MCH 28.4 MCHC 34.2 RDW 13.3 Plt Count 119 L Impressions: Chest X-Ray 05/01/17 19:35 IMPRESSION: NO SIGNIFICANT RADIOGRAPHIC FINDING IN THE CHEST. Chest/Abdomen CTA 05/01/17 20:41 IMPRESSION: Bilateral lower lobe and anterior segment right upper lobe pulmonary emboli Venous Doppler Study 05/02/17 00:00 IMPRESSION: Findings consistent with deep venous thrombosis involving the popliteal vein on the right. No other evidence for deep or superficial venous thrombosis in either lower extremity Assessment & Plan - Diagnosis (1) Chest pain Qualifiers: Chest pain type: chest pain on breathing Qualified Code(s): R07.1 - Chest pain on breathing; R07.81 - Pleurodynia Is this a current diagnosis for this admission?: Yes (2) HTN (hypertension) Qualifiers: Hypertension type: essential hypertension Qualified Code(s): I10 - Essential (primary) hypertension Is this a current diagnosis for this admission?: Yes (3) Multiple pulmonary emboli Is this a current diagnosis for this admission?: Yes (4) Valvular heart disease Is this a current diagnosis for this admission?: Yes - Notes Notes: Patient has remained stable throughout this hospitalization as regards cardiovascular system symptoms. His blood pressure has been reasonably well- controlled. Anticoagulation is being managed by hospitalist and also by oncologist. As regards valvular heart disease, he can follow-up with me in the office. Patient is expected to be just discharged today. Will sign off. Please reconsult if needed. - Time Time with patient: 15-25 minutes - CODE STATUS was discussed, patient remains full code. Surrogate decision-maker unchanged. Multiple medical problems were addressed. More than 50% of the time spent coordinating care, discussing management plans with involved caregivers. Management plans discussed with involved personnels. Medical decision making was of moderate to high complexity , patient's has multiple comorbidities. Medications reviewed and adjusted accordingly: Yes
--- NOTE | 2017-05-07 18:11 | PDOC DISCHARGE SUMMARY ---
General - Admit/Disc Date/PCP Admission Date/Primary Care Provider: 05/01/17 22:23 RITIKA MELENDEZ MD Discharge Date: 05/05/17 - Discharge Diagnosis (1) HTN (hypertension) Is this a current diagnosis for this admission?: Yes (2) Multiple pulmonary emboli Is this a current diagnosis for this admission?: Yes (3) Seizure disorder Is this a current diagnosis for this admission?: Yes - Additional Information Resuscitation Status: Full Code Discharge Diet: Cardiac Discharge Activity: Activity As Tolerated Prescriptions: Warfarin Sodium [Coumadin 3 mg Tablet] 6 mg PO QHS #30 tablet Enoxaparin Sodium [Lovenox Inj 80 mg/0.8 ml Disp.syrin] 75 mg SUBCUT Q12A #14 disp.syrin Home Medications: Amlodipine Besylate [Norvasc 10 mg Tablet] 10 mg PO DAILY 05/02/17 Aspirin [Aspirin EC] 81 mg PO DAILY 05/02/17 Hydrochlorothiazide [Hydrodiuril 12.5 mg Capsule] 12.5 mg PO DAILY 05/02/17 Lisinopril [Prinivil] 20 mg PO DAILY 05/02/17 Phenytoin Sodium Extended [Dilantin 100 mg Capsule.er] 300 mg PO DAILY 05/02/17 Pravastatin Sodium [Pravachol] 40 mg PO QHS 05/02/17 Tamsulosin HCl [Flomax 0.4 mg Cap.sr] 0.4 mg PO DAILY 05/02/17 Enoxaparin Sodium [Lovenox Inj 80 mg/0.8 ml Disp.syrin] 75 mg SUBCUT Q12A #14 disp.syrin 05/05/17 Warfarin Sodium [Coumadin 3 mg Tablet] 6 mg PO QHS #30 tablet 05/05/17 History of Present Illness Patient complains of: Shortness of breath and difficulty breathing as well as leg swelling and was found to have DVT and multiple pulmonary emboli. History of Present Illness: ALIZE MONTES is a 67 year old male Hospital Course Hospital Course: Patient was admitted for difficulty breathing and shortness of breath who was subsequently found to have a right popliteal vein DVT as well as multiple pulmonary embolus bilaterally. He was initially started on heparin but this has been transitioned to Lovenox bridge as well as Coumadin. Patient says symptoms have resolved and is deemed stable enough for discharge home. Consultations by cardiology was done due to a finding of valvular heart disease on 2-dimensional echocardiogram. No acute intervention planned. Hematology was also consulted and he will be followed as outpatient by Dr. Forde. Patient has been able to self inject Lovenox with resolution of his presenting symptoms and hemodynamic stability he has been discharged home Physical Exam Vital Signs: Temp Pulse Resp BP Pulse Ox 97.9 F 55 L 16 143/61 H 100 05/05/17 07:49 05/05/17 07:49 05/05/17 07:49 05/05/17 07:49 05/05/17 07:49 Intake & Output 05/04/17 05/05/17 05/06/17 06:59 06:59 06:59 Intake Total 1274 927 Output Total 500 Balance 774 927 Weight 75.7 kg 75.5 kg General appearance: PRESENT: no acute distress, well-developed, well-nourished Head exam: PRESENT: atraumatic, normocephalic Eye exam: PRESENT: conjunctiva pink, EOMI, PERRLA. ABSENT: scleral icterus Ear exam: PRESENT: normal external ear exam Mouth exam: PRESENT: moist, tongue midline Neck exam: ABSENT: carotid bruit, JVD, lymphadenopathy, thyromegaly Respiratory exam: PRESENT: clear to auscultation lio. ABSENT: rales, rhonchi, wheezes Cardiovascular exam: PRESENT: RRR. ABSENT: diastolic murmur, rubs, systolic murmur Pulses: PRESENT: normal dorsalis pedis pul Vascular exam: PRESENT: normal capillary refill GI/Abdominal exam: PRESENT: normal bowel sounds, soft. ABSENT: distended, guarding, mass, organolmegaly, rebound, tenderness Rectal exam: PRESENT: deferred Extremities exam: PRESENT: full ROM. ABSENT: calf tenderness, clubbing, pedal edema Neurological exam: PRESENT: alert, awake, oriented to person, oriented to place , oriented to time, oriented to situation, CN II-XII grossly intact. ABSENT: motor sensory deficit Psychiatric exam: PRESENT: appropriate affect, normal mood. ABSENT: homicidal ideation, suicidal ideation Skin exam: PRESENT: dry, intact, warm. ABSENT: cyanosis, rash Results Laboratory Results: 05/05/17 05:38 05/04/17 05:22 05/05/17 05:38 WBC 2.6 L RBC 4.30 L Hgb 12.2 L Hct 35.7 L MCV 83 MCH 28.4 MCHC 34.2 RDW 13.3 Plt Count 119 L Impressions: Chest X-Ray 05/01/17 19:35 IMPRESSION: NO SIGNIFICANT RADIOGRAPHIC FINDING IN THE CHEST. Chest/Abdomen CTA 05/01/17 20:41 IMPRESSION: Bilateral lower lobe and anterior segment right upper lobe pulmonary emboli Venous Doppler Study 05/02/17 00:00 IMPRESSION: Findings consistent with deep venous thrombosis involving the popliteal vein on the right. No other evidence for deep or superficial venous thrombosis in either lower extremity Plan Time Spent: Greater than 30 Minutes
== END 2017-05-05 12:17 | disposition home or self-care (01) | DRG 299 ==
LOC: ER 19:16 → EH 22:23 → 3S 05-02 16:20
PROVIDERS: ADMIT Internal Medicine; ATTEND Internal Medicine
PROC: 3E0234Z Introduction of Serum, Toxoid and Vaccine into Muscle, Percutaneous Approach (ICD-10-PCS; principal; 2017-05-04)
DX: I82.403 Acute embolism and thrombosis of unspecified deep veins of lower extremity, bilateral (principal); I26.99 Other pulmonary embolism without acute cor pulmonale; E78.5 Hyperlipidemia, unspecified; I10 Essential (primary) hypertension; F17.210 Nicotine dependence, cigarettes, uncomplicated; N40.1 Benign prostatic hyperplasia with lower urinary tract symptoms; G40.909 Epilepsy, unspecified, not intractable, without status epilepticus; I35.9 Nonrheumatic aortic valve disorder, unspecified; Z86.718 Personal history of other venous thrombosis and embolism; Z79.899 Other long term (current) drug therapy; Z79.82 Long term (current) use of aspirin; Z79.02 Long term (current) use of antithrombotics/antiplatelets; Z23 Encounter for immunization
CPT/HCPCS: 36415; 71046; 71275; 80053; 81001; 82272; 82550; 82553; 84484; 85025; 85027; 85610; 85730; 90686; 93005; 93010; 93306; 93970; 96374; 99291; J1644; J1650; J3490

== ENCOUNTER → 2017-05-16 | Outpatient (CLI) | payer MEDICARE, OTHER ==
[2017-05-16 17:23] LABS: ANION GAP 10 (5-19); BLOOD UREA NITROGEN 9 mg/dL (7-20); CALCIUM 9.7 mg/dL (8.4-10.2); CARBON DIOXIDE 29 mmol/L (22-30); CHLORIDE 105 mmol/L (98-107); CHOLESTEROL 190.61 mg/dL (0-200); GLUCOSE 108 mg/dL (75-110); POTASSIUM 4.1 mmol/L (3.6-5.0); SODIUM 143.8 mmol/L (137-145); TRIGLYCERIDES 107 mg/dL (<150)
[2017-05-16 17:33] LABS: DIRECT LDL 84 mg/dL (<100)
[2017-05-18 05:41] LABS: HEPATITIS C VIRUS AB <0.1 s/co ratio (0.0-0.9)
== END ==
LOC: OD 15:50
PROVIDERS: ATTEND Family Medicine
DX: N40.0 Benign prostatic hyperplasia without lower urinary tract symptoms (principal); E78.5 Hyperlipidemia, unspecified; I10 Essential (primary) hypertension; R56.9 Unspecified convulsions; Z79.899 Other long term (current) drug therapy; Z11.59 Encounter for screening for other viral diseases
CPT/HCPCS: 36415; 80048; 80061; 80185; 83036; 84153; 84443; 86803; 86804

== ENCOUNTER → 2018-04-30 | Outpatient (CLI) | payer MEDICARE, OTHER ==
[2018-04-30 15:26] LABS: ANION GAP 6 (5-19); BLOOD UREA NITROGEN 11 mg/dL (7-20); CALCIUM 9.1 mg/dL (8.4-10.2); CARBON DIOXIDE 30 mmol/L (22-30); CHLORIDE 104 mmol/L (98-107); GLUCOSE 89 mg/dL (75-110); POTASSIUM 4.5 mmol/L (3.6-5.0); SODIUM 139.5 mmol/L (137-145); TRIGLYCERIDES 73 mg/dL (<150)
[2018-04-30 15:37] LABS: DIRECT LDL 70 mg/dL (<100)
== END ==
LOC: OD 14:26
PROVIDERS: ATTEND Family Medicine
DX: N40.0 Benign prostatic hyperplasia without lower urinary tract symptoms (principal); R56.9 Unspecified convulsions; E78.5 Hyperlipidemia, unspecified; I10 Essential (primary) hypertension; Z79.899 Other long term (current) drug therapy
CPT/HCPCS: 36415; 80048; 80061; 80185; 83036; 84153; 84443

== ENCOUNTER 2018-10-18 06:41 | Day surgery (SDC) | payer MEDICARE, OTHER ==
[2018-10-18] MEDS ORDERED: ONDANSETRON HCL INJ/PF 4 MG/2 ML SDV ONE (07:14)
[2018-10-18] MEDS ORDERED: DIPHENHYDRAMINE HCL 50 MG/ML VIAL ONE (07:14)
[2018-10-18] MEDS ORDERED: FENTANYL CITRATE INJ/PF 100 MCG/2 ML AMPUL ONE (07:14)
[2018-10-18] MEDS ORDERED: GLUCAGON,HUMAN RECOMB 1 MG INJ ONE (07:15)
[2018-10-18] MEDS ORDERED: FLUMAZENIL INJ 0.5 MG/5 ML VIAL ONE (07:15)
[2018-10-18] MEDS ORDERED: EPINEPHRINE INJ 1 MG/10 ML DISP.SYRIN ONE (07:15)
[2018-10-18] MEDS ORDERED: NALOXONE HCL INJ/PF 0.4 MG/1 ML SDV ONE (07:15)
[2018-10-18] MEDS ORDERED: MIDAZOLAM 2 MG/2 ML INJ ONE (07:15)
[2018-10-18] MEDS ORDERED: MIDAZOLAM 2 MG/2 ML INJ IV ONE (07:45)
[2018-10-18] MEDS ORDERED: FENTANYL CITRATE INJ/PF 100 MCG/2 ML AMPUL IV ONE (07:46)
--- NOTE | 2018-10-18 08:27 | Discharge Summary ---
Discharge Summary (SDC) - Discharge Final Diagnosis: Multiple colon and rectal polyps Date of Surgery: 10/18/18 Discharge Date: 10/18/18 Condition: Good Treatment or Instructions: [place] [id number] POST ENDOSCOPY DISCHARGE INSTRUCTIONS 1. Diet: Start clear liquids that a regular diet as tolerated. 2. Resume all preoperative medications. All oral anticoagulants and aspirins can be resumed 24 hours after procedure. 3. If a polypectomy was performed some bleeding per rectum may occur. This should stop within 3 days. If not, please contact the office. 4. If you had a colonoscopy you may experience some bloating and delayed return of normal bowel function for several days, your regular bowel movement pattern should resume within a week. 5. Please contact [facility] at to make an appointment with Dr. Ponce for 1 to 3 weeks following procedure. 6. If you have any questions or concerns regarding your care,treatment plan or follow up, please contact our office. 7. Per clinical guidelines we recommend you undergo a repeat colonoscopy in 3 years. Referrals: RITIKA MELENDEZ MD [Primary Care Provider] - Discharge Diet: As Tolerated Discharge Activity: Activity As Tolerated Home Care Assistance: None Needed Report the Following to Your Physician Immediately: Shortness of Breath, Increase in Pain, Fever over 101 Degrees
--- NOTE | 2018-10-18 08:39 | Operative Report ---
Operative Report DATE OF SURGERY: 10/18/18 PREOPERATIVE DIAGNOSIS: Hx of polyps POSTOPERATIVE DIAGNOSIS: Same. 1. Scattered diverticulosis. 2. Internal hemorrhoids. 3. multiple colon and rectal polyps OPERATION: 1. Total colonoscopy to cecum with photodocumentation. 2. Hot snare polypectomy of 3 polyps in the transverse colon and descending colon. 3. Multiple cold forceps biopsy polypectomies of the upper rectum. SURGEON: UNIQUE MACDONALD ANESTHESIA: Moderate Sedation TISSUE REMOVED OR ALTERED: Multiple colon polyps COMPLICATIONS: None ESTIMATED BLOOD LOSS: Scant INTRAOPERATIVE FINDINGS: See below PROCEDURE: Obtaining informed consent the patient was taken from the preoperative holding area to the main endoscopy suite where monitoring devices were attached to the patient. Plan and surgical timeout were conducted The patient was placed in the left lateral decubitus position with knees to chest. A perianal examination was performed. There was no visible or palpable anorectal pathology. Sphincter tone was felt to be normal. Posterior surface of the prostate gland was enlarged. The flexible adult colonoscope was advanced through the anal rectal canal, all the way to the cecum. Visualization of the cecum was achieved and the ileocecal valve, the appendiceal orifice and transillumination of the anterior abdominal wall. This was an excellent study on the well-prepped bowel. The colonoscope was withdrawn slowly and methodically checked and the mucosa carefully; the transverse colon descending colon with 3 sessile polyps 2 to 4 mm in diameter, slightly pedunculated. All 3 were removed with the hot snare device medium strength. Post polypectomy site inspected and felt to be stable. Bleeding negligible. Symptoms were labeled transverse colon and descending colon polyps. The third specimen was lost in transit. In the rectum were several small hyperplastic polyps which were removed with a low forceps device. Bleeding was minimal. There were scattered diverticular disease in the ascending colon. The scope was retroflexed in the anorectal canal. There are internal hemorrhoids noted. Scope was straightened out through the anal canal and the scope removed. Complete visualization of the rectum was achieved with photodocumentation. The scope was withdrawn to the patient's anus. The patient tolerated the procedure well and was taken to the recovery area in stable condition. Per Surveillance guidelines, she will be appropriate candidate for follow-up colonoscopy 3 years, or sooner if symptoms develop.
[2018-10-18 09:27] VITALS: BP 172/69
== END 2018-10-18 09:30 | disposition home or self-care (01) ==
LOC: END 06:41
PROVIDERS: ATTEND Surgery
DX: Z12.11 Encounter for screening for malignant neoplasm of colon (principal); D12.3 Benign neoplasm of transverse colon; D12.6 Benign neoplasm of colon, unspecified; D12.8 Benign neoplasm of rectum; K57.30 Diverticulosis of large intestine without perforation or abscess without bleeding; K64.8 Other hemorrhoids; Z86.010 Personal history of colon polyps; Z90.49 Acquired absence of other specified parts of digestive tract; I10 Essential (primary) hypertension; F17.210 Nicotine dependence, cigarettes, uncomplicated; Z01.818 Encounter for other preprocedural examination; Z86.718 Personal history of other venous thrombosis and embolism; Z79.899 Other long term (current) drug therapy; Z79.01 Long term (current) use of anticoagulants; Z86.711 Personal history of pulmonary embolism
CPT/HCPCS: 45385; 88305 ×2; J2250; J3010; J0171; J1200; J1610; J2310; J2405; J3490

== ENCOUNTER → 2019-04-18 | Outpatient (CLI) | payer MEDICARE ==
[2019-04-18 12:29] LABS: BLOOD UREA NITROGEN 10 mg/dL (7-20); CHLORIDE 103 mmol/L (98-107); GLUCOSE 86 mg/dL (75-110)
[2019-04-18 12:30] LABS: ANION GAP 9 (5-19); CARBON DIOXIDE 26 mmol/L (22-30); CHOLESTEROL 198.42 mg/dL (0-200); DIRECT LDL 89 mg/dL (<100); TRIGLYCERIDES 100 mg/dL (<150)
== END ==
LOC: OD 08:42
PROVIDERS: ATTEND Family Medicine
DX: N40.0 Benign prostatic hyperplasia without lower urinary tract symptoms (principal); E78.5 Hyperlipidemia, unspecified; I10 Essential (primary) hypertension; R73.09 Other abnormal glucose; R56.9 Unspecified convulsions; Z79.899 Other long term (current) drug therapy
CPT/HCPCS: 36415; 80048; 80061; 80185; 83036; 84153; 84443

== ENCOUNTER → 2019-05-01 | Outpatient (CLI) | payer MEDICARE ==
--- NOTE | 2019-05-01 14:23 | RADIOLOGY REPORT (SQ) ---
EXAM DESCRIPTION: LUMBAR SPINE COMPLETE COMPLETED DATE/TIME: 05/01/2019 1:03 pm REASON FOR STUDY: LUMBAGO WITH SCIATICA, RIGHT SIDE/LT SIDE,LUMBOSACRAL PLEXUS DISORDERS M54.41 LUM BAGO WITH SCIATICA, RIGHT SIDE M54.42 LUMBAGO WITH SCIATICA, LEFT SIDE G54.1 LUMBOSACRAL PLEXUS DIS ORDERS COMPARISON: None. NUMBER OF VIEWS: Five views including obliques. TECHNIQUE: AP, lateral, oblique, and sacral radiographic images acquired of the lumbar spine. LIMITATIONS: None. FINDINGS: MINERALIZATION: Normal. SEGMENTATION: Normal. No transitional anatomy. ALIGNMENT: Normal. VERTEBRAE: No definite acute compression deformity. Multilevel endplate change with mild multilevel central height loss of the lower lumbar spine, stable. DISCS: Mild height loss at L4-5 and L5-S1 with associated endplate change. POSTERIOR ELEMENTS: No fracture dislocation. No definite pars defect. Lower lumbar facet arthropath y. HARDWARE: None in the spine. PARASPINAL SOFT TISSUES: Vascular calcifications. PELVIS: Intact as visualized. No fractures or worrisome bone lesions. SI joints intact. OTHER: No other significant finding. IMPRESSION: No evidence of acute bony abnormality. Mild lower lumbar degenerative change and facet arthropathy. TECHNICAL DOCUMENTATION: JOB ID: [id number] [employer]- All Rights Reserved Reading location - IP/workstation name: [email or web address]
== END ==
LOC: OD 12:48
PROVIDERS: ATTEND Family Medicine
DX: M54.41 Lumbago with sciatica, right side (principal); M54.42 Lumbago with sciatica, left side; G54.1 Lumbosacral plexus disorders
CPT/HCPCS: 72110

== ENCOUNTER → 2020-04-08 | Outpatient (CLI) | payer MEDICARE ==
[2020-04-08 09:04] LABS: ANION GAP 8 (5-19); BLOOD UREA NITROGEN 11 mg/dL (7-20); CARBON DIOXIDE 26 mmol/L (22-30); CHLORIDE 104 mmol/L (98-107); CHOLESTEROL 187.93 mg/dL (0-200); GLUCOSE 98 mg/dL (75-110); POTASSIUM 4.1 mmol/L (3.6-5.0); TRIGLYCERIDES 87 mg/dL (<150)
[2020-04-08 09:15] LABS: DIRECT LDL 90 mg/dL (<100)
== END ==
LOC: OD 07:46
PROVIDERS: ATTEND Family Medicine
DX: Z12.5 Encounter for screening for malignant neoplasm of prostate (principal); N40.0 Benign prostatic hyperplasia without lower urinary tract symptoms; E78.5 Hyperlipidemia, unspecified; I10 Essential (primary) hypertension; R73.09 Other abnormal glucose; R56.9 Unspecified convulsions; Z79.899 Other long term (current) drug therapy
CPT/HCPCS: 36415; 84443; 80185; 80048; 83036; 80061; G0103

== ENCOUNTER → 2020-04-27 | Outpatient (CLI) | payer MEDICARE ==
[~2020-04-27] MED LIST changes: +COVID-19 VACCINE (PFIZER)/PF 30 MCG/0.3 ML VIAL IM ONE; +EPINEPHRINE INJ/PF 1 MG/1 ML AMPULE IM PRN; -KETOROLAC TROMETHAMINE 0.45% 4 DROP/0.4 ML DROPERETTE OS PRN; -MIDAZOLAM 2 MG/2 ML INJ ONE
== END ==
LOC: EMPHEALTH 13:39
PROVIDERS: ATTEND Internal Medicine
DX: Z23 Encounter for immunization (principal)
CPT/HCPCS: 91300